=== PATIENT | male | born 1945 | race Caucasian/White ===

== ENCOUNTER → 2019-05-02 09:14 | Outpatient (CLI) | payer MEDICARE | END | disposition home or self-care (01) | LOC: D.MRI 09:14 | PROVIDERS: ATTEND Orthopaedic Surgery | DX: M54.16 Radiculopathy, lumbar region (principal) ==

== ENCOUNTER 2019-07-25 05:25 | Day surgery (SDC) | payer MEDICARE ==
[2019-07-23 12:27] LABS: BASOPHILS 0 % (0-2); EOSINOPHILS 3.1 % (0-7); HEMATOCRIT 35.8 % (42.0-54.0); HEMOGLOBIN 12.3 g/dL (13.5-17.5); LYMPHOCYTES 11.6 % (15-50); MCH 33.3 pg (26.0-34.0); MCHC 34.4 g/dL (31.0-37.0); MEAN PLATELET VOLUME 9.7 fL (7.4-10.4); MONOCYTES 16.5 % (2-11); NEUTROPHILS 68.8 % (40-80); PLATELET COUNT 155 10x3/uL (130-400); RBC 3.69 10x6/uL (4.20-6.10); RDW 14.1 % (11.5-14.5); WBC 3.5 10x3/uL (4.8-10.8)
[2019-07-23 12:35] LABS: INR 1.04 (0.85-1.17); PROTIME 13.1 SECONDS (11.6-15.0)
[~2019-07-25] VITALS: Ht 177.8 cm; Wt 113.6 kg
[~2019-07-25 05:25] MED LIST: BAYER CHEWABLE81 MG; CARDIZEM CD180 MG PO; CINNAMON500 MG; GLEEVEC100 MG; GLUCOSAMINE HC500 MG PO; LISINOPRIL20 MG PO; MELATONIN5 MG PO; MULTI-DAY VITAM1 TAB PO; NATURAL VEGETA283 G1; OMEGA-3100 MG; OMEPRAZOLE20 M1 PO; PRAVACHOL20 MG PO; VOLTAREN75 MG; [UNRECOGNIZED DRUG - OTHER]
[2019-07-25 06:24] VITALS: BP 123/69; Ht 177.8 cm; Wt 113.6 kg
[2019-07-25] MEDS ORDERED: HYDROCODON-ACE1 EA10 PO (09:44)
--- NOTE | 2019-07-26 15:18 | OP ---
PATIENT NAME: SHANKAR MANCUSO MEDICAL RECORD: [id number] :41 LOCATION:[facility] ADMISSION DATE: SURGEON: ELIZABETH AGUILAR MD DATE OF OPERATION: 07/25/2019 PREOPERATIVE DIAGNOSIS: Left L5 radiculopathy with footdrop. POSTOPERATIVE DIAGNOSES: 1. Left L5 radiculopathy with footdrop. 2. Lumbar spinal stenosis, severe L4-L5, left. PROCEDURE: Lumbar laminectomy, medial facetectomy, and foraminotomy L4-L5 on the left with sublaminar decompression. DESCRIPTION AND TECHNIQUE: After induction of general endotracheal anesthesia, the patient was rolled prone on the Howard frame. Lumbar spine was prepped and draped in usual sterile fashion. Fluoroscopic x-ray and spinal needle localized the L4-L5 interspace on the left side. Series of dilators were used to advance a METRx retractor at the L4-L5 interspace on the left side. Level was confirmed with fluoroscopic x-ray. A microscope and Midas Kevin drill were used to perform laminotomy, medial facetectomy and foraminotomy at L4-L5 on the left. Hypertrophied ligamentum flavum was removed with Cloward rongeurs. This partially relieved the compression of the left L5 nerve root. There was a subligamentous disc herniation as well as annulus was incised. Disc material was removed with the pituitary rongeurs and this decompressed the left L5 nerve root completely. Meticulous hemostasis was maintained throughout the wound. The wound was irrigated with copious amounts of Ancef irrigant solution. The retractors were removed. The fascia was closed with 2-0 Vicryl suture. Subdermal layer was closed with 3-0 Vicryl suture. Skin was closed with analia. A sterile dressing was applied to the wound. The patient was awakened in good condition and taken to recovery. All counts were reported as correct. Estimated blood loss was minimal. TRANSINT:[id number] Voice Confirmation ID: [id number] DOCUMENT ID: [id number] ELIZABETH AGUILAR MD at 1518 CC: [id number] DICTATION DATE: 07/25/19 0948 AIRPLANE RIGGER: 07/25/[address] [facility] 07/25/19 [place] [address]
== END 2019-07-25 11:49 | disposition home or self-care (01) ==
LOC: D.OPS 05:25 → D.PAN 07:30 → D.OPS 07:30
PROVIDERS: Anesthesiology; ATTEND Neurological Surgery
DX: M54.16 Radiculopathy, lumbar region (principal); M48.061 Spinal stenosis, lumbar region without neurogenic claudication; M21.372 Foot drop, left foot

== ENCOUNTER → 2020-12-03 18:26 | Outpatient (CLI) | payer MEDICARE ==
[2019-07-25 06:24] VITALS: BMI 35.9
[~2020-12-03 18:26] MED LIST changes: +HYDROCODON-ACE1 EA10 PO
== END | disposition home or self-care (01) ==
LOC: D.LABREF 18:26
PROVIDERS: ATTEND Orthopaedic Surgery
DX: M19.011 Primary osteoarthritis, right shoulder (principal)

== ENCOUNTER 2020-12-10 08:52 | Observation (INO) | payer MEDICARE ==
[~2020-12-10] VITALS: Ht 175.3 cm; Wt 111.6 kg
[2021-01-08 12:21] LABS: BASOPHILS 1.2 % (0-2); EOSINOPHILS 6.5 % (0-7); HEMATOCRIT 38.3 % (42.0-54.0); HEMOGLOBIN 13.1 g/dL (13.5-17.5); LYMPHOCYTE ABS# 0.62 10x3/uL (1.32-3.57); LYMPHOCYTES 19.1 % (15-50); MCH 33.1 pg (26.0-34.0); MCHC 34.2 g/dL (31.0-37.0); MCV 96.7 fL (80.0-100.0); MEAN PLATELET VOLUME 9.8 fL (7.4-10.4); MONOCYTES 8.3 % (2-11); NEUTROPHIL ABS# 2.11 10x3/uL (1.78-5.38); NEUTROPHILS 64.9 % (40-80); RBC 3.96 10x6/uL (4.20-6.10); RDW 15.1 % (11.5-14.5); WBC 3.3 10x3/uL (4.8-10.8)
[2021-01-08 12:22] LABS: PLATELET COUNT 202 10x3/uL (130-400)
[2021-01-08 12:29] LABS: ANION GAP 12.9 mmol/L (8-16); CALCIUM 8.7 mg/dL (8.5-10.1); CARBON DIOXIDE 26.5 mmol/L (21.0-32.0); CREATININE - SERUM 1.7 mg/dL (0.6-1.3); POTASSIUM - SERUM 4.4 mmol/L (3.5-5.1)
[2021-01-08 12:36] LABS: APTT 27.9 SECONDS (22.8-39.4); INR 1.14 (0.85-1.17); PROTIME 13.5 SECONDS (11.6-15.0)
[2021-01-08] MEDS ORDERED: POTASSIUM99 M1 PO (13:14)
[2021-01-08] MEDS ORDERED: [UNRECOGNIZED DRUG - OTHER] (13:15)
[2021-01-08] MEDS ORDERED: VITAMIN D31250 MCG (13:20)
[2021-01-19] MEDS ORDERED: ASPIRIN325 MG (08:38)
[2021-01-19 08:39] VITALS: BP 135/63; BMI 36.4
[2021-01-19] MEDS ORDERED: FISH OIL 1,0001 CA1 (08:39)
--- NOTE | 2021-01-19 12:50 | NUR ---
HIBACLENS AND ALCOHOL USED TO CLEAN BEFORE PREPPING. STERILE GOWNED AND GLOVED TO PREP ENTIRE RIGHT SHOULDER AND ARM. THROUGH TRAFFIC KEPT TO A MINIMUM.
[2021-01-19 14:36] VITALS: BP 142/61
[2021-01-19 14:42] VITALS: BP 142/61; BMI 36.4
[2021-01-19 14:58] VITALS: BP 135/67; BP 142/61
--- NOTE | 2021-01-19 14:59 | NUR ---
RECIEVED FROM PACU PER BED. CUCO DRAIN NOTED TO RIGHT SHOULDER. DRESSING CLEAN DRY AND INTACT. OXYGEN AT 3L PER NC. RIGHT ARM IN SLING. IV TO LEFT HAND WITHOUT REDDNESS OR SWELLING. STATES PAIN CONTROL IS A 2/10. AT BEDSIDE. AND CALL LIGHT IN REACH. BED ALARM ON AND ACTIVE
--- NOTE | 2021-01-19 16:06 | MORECARE ---
CASE MANAGEMENT DISCHARGE SUMMARY PATIENT: SHANKAR MANCUSO UNIT: [id number] ADM DATE: 01/19/21 AGE: 75 : 43 SEX: M ROOM/BED: D.1213 AUTHOR: CARLOS A PEREIRA PHYSICIAN: REFERRING PHYSICIAN: TYE AGRAWAL DO DATE OF SERVICE: 01/19/21 Case Management Discharge Planning Summary COMMENTS ENTERED DATE: 01/19/21 15:59 CT COMMENT TYPE: Discharge Planning REVIEWER: José Miguel Maciel CM met with patient to complete DC plan and to evaluate needs. Patient lives independently with his spouse, Lina Mancuso, . Patient stated that his home is safe and has electricity and running water. Patient stated that he has no problems paying for medications and he fills his medications at [facility] [place]. Patient stated that his primary care physician is Dr. Naomi Peralta. At discharge, the patient plans to return home and feels this is a safe discharge. CM discussed availability of home health, rehab services, and medical equipment. Patient declined HHS, SNF, IPR, and DME. Patient stated he has a CPAP machine at home. Patient voiced no other needs at this time and is satisfied with DC plan. Transportation provider at discharge will be with his , Susan. MILLER delivered, explained, signed by the patient, and placed in chart. Signed form also left with the patient. CM will continue to follow and will assist as needed with dc plans/needs. DCP REVIEW SUMMARY ANTICIPATED D/C DATE: EXPECTED LOS : CASE STATUS: DCP Initiated INITIAL REVIEW: 01/19/2021 INITIAL REVIEWER: José Miguel Maciel FINAL DISCHARGE DISPOSITION: : FINAL REVIEWER: FINAL REVIEW DATE: DCP Focus Questions & Answers DCP Evaluation QUESTION: ANSWER Family / Caregiver's ability to cope with chronic illness: : a. Adequate (ability to meet patient's medical needs, ensures patient attends medical appts.) Patient gives permission to discuss discharge plans with: (name, relationship and number) : spouse, Lina Mancuso, Patient's ability to cope with chronic illness : d. No chronic illness Patient's current cognitive status: : *Oriented to person, place, situation, time and present Patient and/or caregiver agree upon recommended discharge plan? : Yes Physical Status: : Independent with ADL's Family / Caregiver's ability to cope with chronic illness: : a. Adequate (ability to meet patient's medical needs, ensures patient attends medical appts.) Functional screen assessment: : Basic needs can adequately be met by self Does the patient have the ability to pay for or attain post discharge needs / services? : Yes Living Arrangements: : Home with Spouse/Significant Other Is there a likelihood that the patient will require additional services to return to the preadmission environment? : No Equipment needed for post hospitalization: : None Baseline cognitive status: : *Oriented to person, place, situation, time and present Patient with capacity for self-care or can be cared for in same environment as prior to hospitalization? : Yes Physical environment modification needed / anticipated for discharge: : No Medication Management: : Patient states can afford medications Medication Management: : Patient states can read and understand medication labels Pharmacy name(s): : [facility] [place] Does Patient have transportation to get home and to follow-up medical appointments when discharged from the hospital? : Yes Would patient like to participate in any Care Coordination programs (if applicable): : Not applicable Does the patient have electricity at home? : Yes Does the patient have running water in their house? : Yes Equipment in use: : CPAP Mental health screen: : No mental health history DCP Re-evaluation QUESTION: ANSWER Would patient like to participate in any Care Coordination programs (if applicable): : Not applicable PATIENT: SHANKAR MANCUSO ENCOUNTER: [id number] MEDICAL RECORD#: [id number] ADMISSION DATE: 01/19/2021 DISCHARGE DATE: ATTENDING MD: TYE BOONE : AGE: 75 MARITAL STATUS: M DC PLAN ID: [id number] FACILITY: [facility] PRINTED ON: 01/19/21 16:06 CT All edits/amendments must be made on the electronic document DICTATION DATE: 01/19/21 160 SCIENCES DEAN: ALEJANDRO 01/19/21 160 RPT#: [id number] DC DATE: STATUS: ADM IN [facility] [address] [place] [address] END OF REPORT
[2021-01-19 20:00] VITALS: BP 130/68
--- NOTE | 2021-01-19 20:00 | NUR ---
ALERT RESTING IN BED, DENIES PAIN OR NEEDS AT THIS TIME, FINGER WARM AND ABLE TO MOVE, SEE SHIFT ASSESSMENT, CALL LIGHT IN REACH
--- NOTE | 2021-01-19 20:17 | OP ---
PATIENT NAME: SHANKAR MANCUSO MEDICAL RECORD: [id number] :41 LOCATION:[facility] D.1213 ADMISSION DATE:01/19/21 SURGEON: JIMBO AGRAWAL DO DATE OF OPERATION: 01/19/2021 PROCEDURE PERFORMED: Right reverse total shoulder arthroplasty. PREOPERATIVE DIAGNOSIS: Right shoulder rotator cuff tear arthropathy. POSTOPERATIVE DIAGNOSIS: Right shoulder rotator cuff tear arthropathy. INDICATIONS: Mr. Mancuso is a 75-year-old male who has had right shoulder pain for quite some time. He is tired of dealing with them and wanted something done surgically. He had all manner of nonoperative treatment. It is affecting his activities of daily living. I informed him of the risks and the benefits of doing a reverse total shoulder arthroplasty including dislocation, fracture, infection, bleeding, damage to nerves and vessels, need for further surgery, continued pain, loss of motion, failure of implants, need for further surgery, need for removal of implants and even and he signed the consent. SURGEON: Jimbo Agrawal DO DESCRIPTION OF THE PROCEDURE: The patient was taken to the operative suite, laid in the supine position with her general anesthetic and intubated. He was given 900 mg of clindamycin, a gram of TXA. He was then sat up in the beach chair position. The right shoulder was prepped and draped in sterile fashion. A timeout was performed. Everyone was in agreement with the correct side, site, patient and procedure. He received a block by anesthesia in the preoperative area. Once timeout had been performed, I made an incision over the deltopectoral interval and made careful dissection down to the pectoral tendon, peeled off the proximal centimeter or so, and his biceps tendon had been ruptured quite long time and it was not there in the location as well as the subscapularis tendon was completely torn off of the lesser tuberosity of the humerus. I then externally rotated and exposed the humeral head after going through the clavipectoral fascia and exposed it and cut it after marking off the guide. I then removed the head. I exposed the glenoid and put the retractors in. I removed the loose body that he had in the posterior shoulder and then put the centering pin in the glenoid and then reamed. I then impacted on the baseplate and put a 25 central screw and three 25 peripheral screws and then a 20 in the anterior inferior, the rest of them were all 25 in the periphery. I then impacted on the glenosphere with a +3 setting and then exposed the humerus and reamed up to an 18 and broached to an 18 and trialed the poly. It reduced very nicely and had good stability in all ranges of the shoulder and there was no shucking. I also had good tension on the conjoined tendon and the deltoid fibers. I then dislocated that and removed the trials, irrigated and put the actual implants. I had reduced the shoulder. It fit very well. Again, had good range of motion and very good stability and the conjoined tendon was taut as well as the deltoid fibers. I then irrigated 10% povidone iodine and 500 mL of normal saline solution and then let that sit for a few minutes and then irrigated out with a liter of normal saline and then put in a drain exiting posteriorly, and then Sammi and vancomycin and tobramycin powder. Anthony Lambert, certified legal investigator closed the skin with 2-0 Vicryl in inverted interrupted fashion, 4-0 Monocryl ran on the skin and a Prineo glue on the skin. I then secured the drain with two Tegaderms. I then put Telfa and Tegaderm over the incision. He was given another gram of TXA. He was awakened and put OPERATIVE REPORT [id number] SHANKAR MANCUSO in a sling and taken to recovery in stable condition. BLOOD LOSS: Approximately 200 mL. COMPLICATIONS: None. TRANSINT:[id number] Voice Confirmation ID: [id number] DOCUMENT ID: [id number] JIMBO AGRAWAL DO at 2017 CC: [id number] DICTATION DATE: 01/19/21 1322 SALON DESIGNER: 01/19/21 1553 ADM IN [facility] [address] [place] [address]
[2021-01-20 00:32] VITALS: BP 114/56
[2021-01-20 04:00] VITALS: BP 116/55
[2021-01-20 07:11] VITALS: BP 121/60
[2021-01-20 08:04] LABS: BASOPHILS 0 % (0-2); EOSINOPHILS 0 % (0-7); HEMOGLOBIN 10.7 g/dL (13.5-17.5); IMMATURE GRANULOCYTES 0.2 % (0-5); LYMPHOCYTE ABS# 0.31 10x3/uL (1.32-3.57); LYMPHOCYTES 4.8 % (15-50); MCH 32.6 pg (26.0-34.0); MCHC 33.4 g/dL (31.0-37.0); MCV 97.6 fL (80.0-100.0); MONOCYTES 9.9 % (2-11); NEUTROPHIL ABS# 5.48 10x3/uL (1.78-5.38); NEUTROPHILS 85.1 % (40-80); PLATELET COUNT 169 10x3/uL (130-400); RBC 3.28 10x6/uL (4.20-6.10); WBC 6.4 10x3/uL (4.8-10.8)
[2021-01-20 08:26] LABS: ALBUMIN 3.5 g/dL (3.4-5.0); BILIRUBIN - TOTAL 0.45 mg/dL (0.2-1.3); CARBON DIOXIDE 23.4 mmol/L (21.0-32.0); CREATININE - SERUM 1.3 mg/dL (0.6-1.3); POTASSIUM - SERUM 4.4 mmol/L (3.5-5.1)
[2021-01-20 11:39] VITALS: BP 122/61
[2021-01-20 13:21] VITALS: Ht 175.3 cm; Wt 111.6 kg
[2021-01-20 15:35] VITALS: BP 144/66
--- NOTE | 2021-01-20 18:34 | NUR ---
RESTING QUIETLY WATCHING TV. CUCO DRAIN IN PLACE TO RIGHT SHOULDER WITH ARM REMAINING IN SLING-PT HAS BEEN UP IN CHAIR MOST OF THE DAY. PAIN MEDICATION GIVEN REQUESTED. HOPING FOR DISCHARGE IN AM. SCDS ON BILAT. BED ALARM ACTIVATED. CALL LIGHT IN REACH
[2021-01-20 20:00] VITALS: BP 140/66
--- NOTE | 2021-01-20 20:00 | NUR ---
ALERT RESTING IN BED DENIES PAIN OR NEEDS AT THIS TIME, SLING IN PLACE TO RIGHT ARM, SEE SHIFT ASSESSMENT, CALL LIGHT IN REACH
[2021-01-21 04:00] VITALS: BP 139/65
[2021-01-21] MEDS ORDERED: HYDROCODON-ACE1 EA10 PO (07:37)
[2021-01-21 08:27] LABS: BASOPHILS 0.2 % (0-2); EOSINOPHILS 2.3 % (0-7); HEMATOCRIT 32.2 % (42.0-54.0); HEMOGLOBIN 10.6 g/dL (13.5-17.5); IMMATURE GRANULOCYTES 0.2 % (0-5); LYMPHOCYTE ABS# 0.71 10x3/uL (1.32-3.57); LYMPHOCYTES 12.7 % (15-50); MCH 32.4 pg (26.0-34.0); MCHC 32.9 g/dL (31.0-37.0); MCV 98.5 fL (80.0-100.0); MEAN PLATELET VOLUME 10.7 fL (7.4-10.4); MONOCYTES 16.6 % (2-11); NEUTROPHIL ABS# 3.81 10x3/uL (1.78-5.38); PLATELET COUNT 154 10x3/uL (130-400); RBC 3.27 10x6/uL (4.20-6.10); RDW 15.5 % (11.5-14.5); WBC 5.6 10x3/uL (4.8-10.8)
[2021-01-21 08:47] LABS: ALBUMIN 3.7 g/dL (3.4-5.0); ANION GAP 14.9 mmol/L (8-16); BILIRUBIN - TOTAL 0.52 mg/dL (0.2-1.3); CALCIUM 8.1 mg/dL (8.5-10.1); CARBON DIOXIDE 24.2 mmol/L (21.0-32.0); CREATININE - SERUM 1.2 mg/dL (0.6-1.3); POTASSIUM - SERUM 4.1 mmol/L (3.5-5.1); PROTEIN - SERUM 6.3 g/dL (6.4-8.2)
--- NOTE | 2021-01-21 10:45 | NUR ---
PT DISCHARGE PREPARATION. ALIREZA DRAIN REMOVED PER ORDERS TO RIGHT SHOULD. PT KAMALA WELL. 4X4 PLACED OVER SITE WITH OPT SITE IN PLACE. DRESSING CHANGED TO RIGHT SHOULDER, DERMABOND GLUE STRIP REMAINS INTACT, SCANT AMOUNT OF DRY DRAINAGE NOTED AT THIS TIME. NO REDNESS OR EDEMA. EDGES WELL APPROXIMATED. SALINE LOC DISCONTINUED TO LEFT HAND, CATH TIP INTACT. DISCHARGE INSTRUCTIONS PROVIDED. DISCUSSED SHOWERING, KEEPNIG INCISION C/D. NOT LIFTING ARM ONLY PERFORMING EXERCISES AT ELBOW. CHANGING DRESSING EVERY 4 DAYS. PROVIDED DRESSING CHANGE BANDAGES. PT NOR FAMILY VOICES ANY QUESTIONS OR CONCERNS AT THIS TIME. PRESCRIPTION PROVIDED TO PT. PT TAKEN OUT VIA W/C TO PRIVATE VEHICLE WITH ALL PERSONAL POSESSIONS.
--- NOTE | 2021-01-21 11:23 | MORECARE ---
CASE MANAGEMENT DISCHARGE SUMMARY PATIENT: SHANKAR MANCUSO UNIT: [id number] ADM DATE: 01/19/21 AGE: 75 : 43 SEX: M ROOM/BED: D.1213 AUTHOR: CARLOS A PEREIRA PHYSICIAN: REFERRING PHYSICIAN: TYE AGRAWAL DO DATE OF SERVICE: 01/21/21 Case Management Discharge Planning Summary COMMENTS ENTERED DATE: 01/19/21 15:59 CT COMMENT TYPE: Discharge Planning REVIEWER: José Miguel Maciel CM met with patient to complete DC plan and to evaluate needs. Patient lives independently with his spouse, Lina Mancuso, . Patient stated that his home is safe and has electricity and running water. Patient stated that he has no problems paying for medications and he fills his medications at [facility] [place]. Patient stated that his primary care physician is Dr. Naomi Peralta. At discharge, the patient plans to return home and feels this is a safe discharge. CM discussed availability of home health, rehab services, and medical equipment. Patient declined HHS, SNF, IPR, and DME. Patient stated he has a CPAP machine at home. Patient voiced no other needs at this time and is satisfied with DC plan. Transportation provider at discharge will be with his , Susan. MILLER delivered, explained, signed by the patient, and placed in chart. Signed form also left with the patient. CM will continue to follow and will assist as needed with dc plans/needs. DCP REVIEW SUMMARY ANTICIPATED D/C DATE: EXPECTED LOS : CASE STATUS: DCP Initiated INITIAL REVIEW: 01/19/2021 INITIAL REVIEWER: José Miguel Maciel FINAL DISCHARGE DISPOSITION: : FINAL REVIEWER: FINAL REVIEW DATE: DCP Focus Questions & Answers DCP Evaluation QUESTION: ANSWER Patient and/or caregiver agree upon recommended discharge plan? : Yes Family / Caregiver's ability to cope with chronic illness: : a. Adequate (ability to meet patient's medical needs, ensures patient attends medical appts.) Patient's current cognitive status: : *Oriented to person, place, situation, time and present Patient's ability to cope with chronic illness : d. No chronic illness Patient gives permission to discuss discharge plans with: (name, relationship and number) : spouse, Lina Mancuso, Does the patient have the ability to pay for or attain post discharge needs / services? : Yes Functional screen assessment: : Basic needs can adequately be met by self Family / Caregiver's ability to cope with chronic illness: : a. Adequate (ability to meet patient's medical needs, ensures patient attends medical appts.) Physical Status: : Independent with ADL's Equipment needed for post hospitalization: : None Is there a likelihood that the patient will require additional services to return to the preadmission environment? : No Living Arrangements: : Home with Spouse/Significant Other Patient with capacity for self-care or can be cared for in same environment as prior to hospitalization? : Yes Baseline cognitive status: : *Oriented to person, place, situation, time and present Physical environment modification needed / anticipated for discharge: : No Medication Management: : Patient states can read and understand medication labels Medication Management: : Patient states can afford medications Pharmacy name(s): : [email or web address] [place] Does Patient have transportation to get home and to follow-up medical appointments when discharged from the hospital? : Yes Would patient like to participate in any Care Coordination programs (if applicable): : Not applicable Does the patient have electricity at home? : Yes Does the patient have running water in their house? : Yes Equipment in use: : CPAP Mental health screen: : No mental health history DCP Re-evaluation QUESTION: ANSWER Would patient like to participate in any Care Coordination programs (if applicable): : Not applicable PATIENT: HSANKAR MANCUSO ENCOUNTER: [id number] MEDICAL RECORD#: [id number] ADMISSION DATE: 01/19/2021 DISCHARGE DATE: 01/21/2021 ATTENDING MD: TYE BOONE : AGE: 75 MARITAL STATUS: M DC PLAN ID: [id number] FACILITY: [facility] PRINTED ON: 01/21/21 11:23 CT All edits/amendments must be made on the electronic document DICTATION DATE: 01/21/21 1123 AUDOGRAPH OPERATOR: ALEJANDRO 01/21/21 112 RPT#: [id number] DC DATE:01/21/21 STATUS: DIS IN [facility] [address] [place] [address] END OF REPORT
== END 2021-01-21 11:11 | disposition home or self-care (01) ==
LOC: D.PSYCH 01-12 09:40 → D.SDCHOLD 01-12 10:00 → D.PSYCH 01-12 10:00 → D.SDCHOLD 01-12 10:30 → D.M3 01-19 07:46 → D.SDCHOLD 01-19 07:46 → D.M3 01-19 12:27 → OBSVTIME 01-20 10:53 → D.M3 01-21 11:11
PROVIDERS: Family Medicine; ADMIT Orthopaedic Surgery; ATTEND Orthopaedic Surgery
DX: M75.101 Unspecified rotator cuff tear or rupture of right shoulder, not specified as traumatic (principal); M12.9 Arthropathy, unspecified; I12.9 Hypertensive chronic kidney disease with stage 1 through stage 4 chronic kidney disease, or unspecified chronic kidney disease; K21.9 Gastro-esophageal reflux disease without esophagitis; N18.9 Chronic kidney disease, unspecified